=== PATIENT | female | born 1960 | race Two or more races ===

== ENCOUNTER → 2024-01-20 | Outpatient (CLI) | payer BC ==
[2024-01-20 08:26] LABS: Chloride 108 mmol/L (98-107); Potassium 4.7 mmol/L (3.5-5.1); Sodium 141 mmol/L (136-145)
[2024-01-20 08:27] LABS: Anion Gap 4 (5-15); Calcium 9.7 mg/dL (8.5-10.1); Carbon Dioxide 29 mmol/L (20-30)
[2024-01-20 08:32] LABS: BUN/Creatinine Ratio 10.8 (10.0-20.0); Blood Urea Nitrogen 8 mg/dL (9-23); Glucose 105 mg/dL (74-106); Triglycerides 135 mg/dL (< 150)
[2024-01-20 08:33] LABS: LDL Cholesterol 105 mg/dL (< 100)
[2024-01-20 08:34] LABS: Cholesterol 184 mg/dL (< 200); HDL Cholesterol 58 mg/dL (40-59)
== END | disposition home or self-care (01) ==
LOC: LAB 08:01
PROVIDERS: ATTEND Internal Medicine
DX: E78.5 Hyperlipidemia, unspecified (principal)
CPT/HCPCS: 36415; 80048; 80061

== ENCOUNTER → 2024-07-27 | Outpatient (CLI) | payer BC | END | disposition home or self-care (01) | LOC: LAB 11:24 | PROVIDERS: ATTEND Dermatology | DX: D48.5 Neoplasm of uncertain behavior of skin (principal) ==

== ENCOUNTER → 2024-08-17 | Outpatient (CLI) | payer BC | END | disposition home or self-care (01) | LOC: LAB 11:28 | PROVIDERS: ATTEND Internal Medicine | DX: Z12.11 Encounter for screening for malignant neoplasm of colon (principal) | CPT/HCPCS: 82270 ==

== ENCOUNTER → 2024-08-17 | Outpatient (CLI) | payer BC | END | disposition home or self-care (01) | LOC: LAB 09:48 | PROVIDERS: ATTEND Dermatology | DX: L72.0 Epidermal cyst (principal); D48.5 Neoplasm of uncertain behavior of skin ==

== ENCOUNTER 2025-02-07 08:16 | Outpatient (CLI) | payer BC ==
[2025-02-07 09:16] LABS: Triglycerides 102 mg/dL (< 150)
[2025-02-07 09:19] LABS: Cholesterol 196 mg/dL (< 200); HDL Cholesterol 53 mg/dL (40-59); LDL Cholesterol 124 mg/dL (< 100)
== END 2025-02-07 17:00 | disposition home or self-care (01) ==
LOC: LAB 08:16
PROVIDERS: ATTEND Internal Medicine
DX: E03.9 Hypothyroidism, unspecified (principal); E78.5 Hyperlipidemia, unspecified
CPT/HCPCS: 36415; 80061; 84443

== ENCOUNTER → 2025-05-18 | Outpatient (CLI) | payer BC | END | disposition home or self-care (01) | LOC: LAB 12:17 | PROVIDERS: ATTEND Dermatology | DX: Z01.812 Encounter for preprocedural laboratory examination (principal); D48.5 Neoplasm of uncertain behavior of skin ==

== ENCOUNTER 2025-07-04 06:10 | Outpatient (CLI) | payer BC ==
[2025-07-04 07:01] LABS: Triglycerides 140 mg/dL (< 150)
[2025-07-04 07:04] LABS: Cholesterol 210 mg/dL (< 200); HDL Cholesterol 61 mg/dL (40-59)
== END 2025-07-04 17:00 | disposition home or self-care (01) ==
LOC: LAB 06:10
PROVIDERS: ATTEND Internal Medicine
DX: E78.5 Hyperlipidemia, unspecified (principal)
CPT/HCPCS: 36415; 80061